=== PATIENT | male | born 1975 | race Caucasian/White ===

== ENCOUNTER 2021-06-13 01:12 | Inpatient (IN) | payer MEDICAID ==
[~2021-06-13] VITALS: Ht 185.4 cm; Wt 88.9 kg
[2021-06-13] MEDS ORDERED: QUEtiapine FUMARATE 100 MG TABLET PO PRN (03:15)
[2021-06-13] MEDS ORDERED: LORazepam 2 MG TABLET PO PRN (03:15)
[2021-06-13 05:21] VITALS: BP 108/70
[2021-06-13 05:24] VITALS: BP 108/70
[2021-06-13] MEDS ORDERED: INFLUENZA VIRUS VACCINE QVS 2021-22 (6MO+)/PF 60 MCG/0.5 ML SYRINGE IM. ONE (06:30)
[2021-06-13 08:26] VITALS: BP 109/68
[2021-06-13] MEDS ORDERED: MAG HYDROX/AL HYDROX/SIMETH ES 30 ML SUSPENSION UDCUP PO PRN (08:30)
[2021-06-13] MEDS ORDERED: TUBERCULIN, PURIFIED PROTEIN DERIVATIVE 5 TU/0.1 ML SYRINGE ID ONE (08:30)
[2021-06-13] MEDS ORDERED: ACETAMINOPHEN 325 MG TABLET PO PRN (08:30)
[2021-06-13] MEDS ORDERED: HydrOXYzine PAMOATE 50 MG CAPSULE PO PRN (08:30)
[2021-06-13] MEDS ORDERED: PROMETHAZINE HCL 25 MG TABLET PO PRN (08:30)
[2021-06-13] MEDS ORDERED: GuaiFENesin/D-METHORPHAN [SUGAR-FREE] 200-20MG/10 ML SYRUP UDCUP PO PRN (08:30)
[2021-06-13] MEDS ORDERED: MAGNESIUM HYDROXIDE SUSPENSION 30 ML UDCUP PO PRN (08:30)
[2021-06-13] MEDS ORDERED: LOPERAMIDE HCL 2 MG CAPSULE PO PRN (08:30)
[2021-06-13] MEDS ORDERED: FOLIC ACID 1 MG TABLET PO SCH (09:00)
[2021-06-13] MEDS ORDERED: NALTREXONE HCL 50 MG TABLET PO SCH (09:00)
[2021-06-13] MEDS ORDERED: OMEGA-3/DHA/EPA/FISH OIL 1,000 MG CAPSULE PO SCH (09:00)
[2021-06-13] MEDS ORDERED: FLUoxetine HCL 20 MG CAPSULE PO SCH (09:00)
[2021-06-13] MEDS ORDERED: MULTIVITAMINS WITH MINERALS, THERAPEUTIC TABLET PO SCH (09:00)
[2021-06-13] MEDS: THIAMINE 100 MG TABLET PO SCH ×3 (14:54→17:06)
[2021-06-13] MEDS ORDERED: PROZ20 PO (15:28)
[2021-06-13] MEDS ORDERED: NALT50TA PO (15:28)
[2021-06-13] MEDS ORDERED: MELA5TAB40 PO (15:28)
[2021-06-13] MEDS ORDERED: OMEG-135 PO (15:28)
[2021-06-13 16:14] VITALS: BP 103/64
[2021-06-13] MEDS ORDERED: MELATONIN 5 MG TABLET PO SCH (21:00)
[2021-06-14 01:38] VITALS: BP 107/72
== END 2021-06-14 09:30 | disposition home or self-care (01) | DRG 751 ==
LOC: B2S 03:15
PROVIDERS: ADMIT Psychiatry & Neurology Psychiatry; ATTEND Psychiatry & Neurology Psychiatry
DX: F33.2 Major depressive disorder, recurrent severe without psychotic features (principal); R45.851 Suicidal ideations; R63.4 Abnormal weight loss; F12.90 Cannabis use, unspecified, uncomplicated; Z55.9 Problems related to education and literacy, unspecified; Z59.00 Homelessness unspecified; Z63.9 Problem related to primary support group, unspecified; Z65.3 Problems related to other legal circumstances; Z68.25 Body mass index [BMI] 25.0-25.9, adult
CPT/HCPCS: 90686; Q9967